=== PATIENT | male | born 1990 | race Caucasian/White ===

== ENCOUNTER 2016-05-06 22:19 | Emergency (ER) | payer MEDICAID ==
[~2016-05-06] VITALS: Ht 190.5 cm; Wt 100.2 kg
[~2016-05-06 22:19] MED LIST: BACTRIM DS 8001 TAB PO; LORTAB 5/500 501 TAB PO; NOMEDS *; VOLTAREN75 MG PO
--- NOTE | 2016-05-06 22:58 | Emergency Room Report ---
History of Present Illness Time Seen by [id number] Presenting Problem in Triage Pt arrived:Walked Presenting Problem:PT C/O LEFT KNEE PAIN. 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 N Clinical Suspician of Infection? N Mental Status: 1 - Regular (Normal Baseline) Sepsis Risk:Low Sepsis Risk Have you (or family members/close friends) recently traveled outside the [place]? N If Yes, where/when: Have you had exposure to infectious disease within the past month? N TB? Other? Specify: Source patient, RN notes reviewed, old records Exam Limitations no limitations Comment lt knee pain over the last 2 weeks - worse last few days with no new injury - originally hurt playing bb Cardiac Chest Pain Chest pain indicative of cardiac No Timing/Duration this evening Severity moderate ALLERGIES Coded Allergies: No Known Allergies (05/06/16) Home Medications Reported Medications No Known Home Medications History Medical History General CAD? No Angina: No PR: No Hypertension? No Hyperlipidemia? No CHF? No DVT? No PE? No COPD? No Asthma? No Anemia? No GERD? No Gastric ulcers? No GI Bleed? No Hernia? No Thyroid Problems? No Hypothyroidism? No CVA? No Seizures? No Diabetes? No Renal Insuffiency? No End Stage Renal Disease? No UTI? No Stones? No BPH? No GB Disease: No Nephritic Syndrome? No Asplenia? No Hepatitis? No Sickle Cell Disease? No Arthritis? No Migraines? No Cataracts? No Glaucoma? No MRSA? No HIV? No TB? No Anxiety? No Depression? No Cancer? No More? No Immunization Hx DT/Tetanus 5-10 YRS Flu NEVER Pneumonia NEVER Surgical Hx Previous Surgery?Y Ear tubes Tonsils Family History Family Hx Diabetes Yes CAD No Hypertension Yes Hyperlipidemia No Cancer Yes TB No Social History Smoking Hx Smoker: Current Every Day Smoker Tobacco: Yes Type Cigarettes Packs/day < 1 Pack Alcohol Alcohol: No Drugs none Review of Systems All Other Systems Reviewed and Negative Constitutional denies fever Eyes denies drainage ENT denies: ear pain, epistaxis, throat pain. Respiratory denies cough, denies shortness of breath, denies wheezing Cardiovascular denies chest pain, denies syncope Gastrointestinal denies abdominal pain, denies diarrhea, denies vomiting Genitourinary denies: dysuria, frequency, hesitancy, hematuria. Musculoskeletal denies back pain, joint pain, denies joint swelling, denies neck pain Skin denies rash Psychiatric/Neurological denies headache, denies seizure Physical Exam Vital Signs Vital Signs Date Time Temp Pulse Resp B/P Pulse O2 O2 Flow FiO2 Ox Delivery Rate 05/06 2226 97.9 114 18 151/78 97 - WBC >12,000 or <4,000 or 10% bands? 2 or more SIRS Criteria Met? B/P:151/78 MAP:102 Creatinine >2.0? UA output<0.5ml/kg/hr for 2 hrs? Platelet count >100,000? Lactate >2.0mmol/1? INR >1.2 or PTT > than 60 sec? Evidence of Organ Dysfunction? Provider documented clinical suspician of infection? N Sepsis Criteria Count: 1 Sepsis Risk: Low Sepsis Risk General Appearance no apparent distress Eye Exam - bilateral eye PERRL, bilateral eye EOMI Ear, Nose, Throat normal ENT inspection Neck supple Respiratory Status No: respiratory distress. Cardiovascular regular rate/rhythm Peripheral Pulses Pulses normal Yes Extremities lt knee w/o reddness /effusion and some medial tenderness with prieto and drawer test ok Strength 4 Upper Ext (L), 4 Upper Ext (R), 4 Lower Ext (L), 4 Lower Ext (R) Neurologic alert, [employer] works II-XII nml as tested, no motor/sensory deficits Reflexes Reflexes normal Yes Mental status normal mood/affect Skin intact Medical Decision Making LABS/Meds/Orders Pt receiving controlled substance in ED? No Results/Orders Orders Procedure Date/time Status KNEE-3 VIEWS-LT 05/06 2231 Active XRAY/CT/US XRAY/CT/US XRAY knee XR interpretation by reviewed by me Xray Results no fracture seen Departure Departure Time of Disposition 2256 Disposition DC Home or Self Care(routine) Clinical Impression Primary Impression: Left knee sprain Qualifiers: Encounter type: initial encounter Involved ligament of knee: unspecified ligament Qualified Code: S83.92XA - Sprain of unspecified site of left knee, initial encounter Condition STABLE Referrals Rodolfo Alejandro MD Patient Instructions DI for Knee Sprain Additional Instructions ice tonight and use meds and see pcp or ortho for follow up Discharge Counseling Counseled pt/family regarding diagnosis, test results, medications/RX, follow up needs Prescriptions Current Visit Scripts Meloxicam (Mobic 15MG) 15 MG PO DAILY #10 TAB ED Critical Care Critical Care No at 2306
--- NOTE | 2016-05-06 22:58 | Emergency Room Report ---
History of Present Illness Time Seen by [id number] Presenting Problem in Triage Pt arrived:Walked Presenting Problem:PT C/O LEFT KNEE PAIN. PT STATES THAT HE WAS PLAYING BASKETBALL A COUPLE WEEKS AGO AND IT STARTED HURTING THEN BUT WENT AWAY AND IS NOW BACK TO HURTING Onset of symptoms date/time:/ or onset unknown for:MEDICAL HX UNKNOWN Treatment Prior to Arrival: [employer] Provided by: Sepsis Risk Assessment: Temp: 97.9 B/P: 151/78 MAP: 102 Pulse: 114 Resp: 18 Recent fever? N Clinical Suspician of Infection? N Mental Status: 1 - Regular (Normal Baseline) Sepsis Risk:Low Sepsis Risk Have you (or family members/close friends) recently traveled outside the [place]? N If Yes, where/when: Have you had exposure to infectious disease within the past month? N TB? Other? Specify: Source patient, RN notes reviewed, old records Exam Limitations no limitations Comment lt knee pain over the last 2 weeks - worse last few days with no new injury - originally hurt playing bb Cardiac Chest Pain Chest pain indicative of cardiac No Timing/Duration this evening Severity moderate ALLERGIES Coded Allergies: No Known Allergies (05/06/16) Home Medications Reported Medications No Known Home Medications History Medical History General CAD? No Angina: No IA: No Hypertension? No Hyperlipidemia? No CHF? No DVT? No PE? No COPD? No Asthma? No Anemia? No GERD? No Gastric ulcers? No GI Bleed? No Hernia? No Thyroid Problems? No Hypothyroidism? No CVA? No Seizures? No Diabetes? No Renal Insuffiency? No End Stage Renal Disease? No UTI? No Stones? No BPH? No GB Disease: No Nephritic Syndrome? No Asplenia? No Hepatitis? No Sickle Cell Disease? No Arthritis? No Migraines? No Cataracts? No Glaucoma? No MRSA? No HIV? No TB? No Anxiety? No Depression? No Cancer? No More? No Immunization Hx DT/Tetanus 5-10 YRS Flu NEVER Pneumonia NEVER Surgical Hx Previous Surgery?Y Ear tubes Tonsils Family History Family Hx Diabetes Yes CAD No Hypertension Yes Hyperlipidemia No Cancer Yes TB No Social History Smoking Hx Smoker: Current Every Day Smoker Tobacco: Yes Type Cigarettes Packs/day < 1 Pack Alcohol Alcohol: No Drugs none Review of Systems All Other Systems Reviewed and Negative Constitutional denies fever Eyes denies drainage ENT denies: ear pain, epistaxis, throat pain. Respiratory denies cough, denies shortness of breath, denies wheezing Cardiovascular denies chest pain, denies syncope Gastrointestinal denies abdominal pain, denies diarrhea, denies vomiting Genitourinary denies: dysuria, frequency, hesitancy, hematuria. Musculoskeletal denies back pain, joint pain, denies joint swelling, denies neck pain Skin denies rash Psychiatric/Neurological denies headache, denies seizure Physical Exam Vital Signs Vital Signs Date Time Temp Pulse Resp B/P Pulse O2 O2 Flow FiO2 Ox Delivery Rate 05/06 2226 97.9 114 18 151/78 97 - WBC >12,000 or <4,000 or 10% bands? 2 or more SIRS Criteria Met? B/P:151/78 MAP:102 Creatinine >2.0? UA output<0.5ml/kg/hr for 2 hrs? Platelet count >100,000? Lactate >2.0mmol/1? INR >1.2 or PTT > than 60 sec? Evidence of Organ Dysfunction? Provider documented clinical suspician of infection? N Sepsis Criteria Count: 1 Sepsis Risk: Low Sepsis Risk General Appearance no apparent distress Eye Exam - bilateral eye PERRL, bilateral eye EOMI Ear, Nose, Throat normal ENT inspection Neck supple Respiratory Status No: respiratory distress. 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 No Results/Orders Orders Procedure Date/time Status KNEE-3 VIEWS-LT 05/06 2231 Active XRAY/CT/US XRAY/CT/US XRAY knee XR interpretation by reviewed by me Xray Results no fracture seen Departure Departure Time of Disposition 2256 Disposition DC Home or Self Care(routine) Clinical Impression Primary Impression: Left knee sprain Qualifiers: Encounter type: initial encounter Involved ligament of knee: unspecified ligament Qualified Code: S83.92XA - Sprain of unspecified site of left knee, initial encounter Condition STABLE Referrals Rodolfo Alejandro MD Patient Instructions DI for Knee Sprain Additional Instructions ice tonight and use meds and see pcp or ortho for follow up Discharge Counseling Counseled pt/family regarding diagnosis, test results, medications/RX, follow up needs Prescriptions Current Visit Scripts Meloxicam (Mobic 15MG) 15 MG PO DAILY #10 TAB ED Critical Care Critical Care No at 2306
[2016-05-06] MEDS ORDERED: MOBIC15 MG PO (23:06)
[2016-05-06 23:21] VITALS: BP 152/89
--- NOTE | 2016-05-07 07:47 | RADIOLOGY REPORT PS360 ---
KNEE-3 VIEWS-LT HISTORY: KNEE PAIN ORDERING PHYSICIAN: Hiral Freeman MD PATIENT AGE: 25 years COMPARISON: None FINDINGS: No fracture or dislocation. No lytic or blastic change. Normal mineralization. No significant arthritic changes evident. No other significant findings IMPRESSION: Negative Knee
== END 2016-05-06 23:22 | disposition home or self-care (01) ==
LOC: ER 22:19
DX: S83.92XA Sprain of unspecified site of left knee, initial encounter (principal); Z72.0 Tobacco use; X50.1XXA Overexertion from prolonged static or awkward postures, initial encounter; Y93.79 Activity, other specified sports and athletics; Y92.009 Unspecified place in unspecified non-institutional (private) residence as the place of occurrence of the external cause

== ENCOUNTER 2017-01-22 22:26 | Emergency (ER) | payer MEDICAID ==
[~2017-01-22] VITALS: Ht 190.5 cm; Wt 100.2 kg
[~2017-01-22 22:26] MED LIST changes: +MOBIC15 MG PO
--- OUTSIDE RECORDS SUMMARY | 2017-01-22 22:50 | External Medical Summary Rpt | CCD ---
Author Author , VISHNU Organization VISHNU Address Unknown Phone Care Team Providers Care Data Integration Architect Name Role Phone BROWN, BROWN Unavailable Unavailable FOX MCELROY, Unavailable Unavailable FOX MCELROY DOUGLAS, Unavailable Unavailable SAM STAFFORD MD, Unavailable Unavailable INDERJIT MARX MD [facility] Un[facility] Un[facility], [facility] KASSIE DAVIS Unavailable Unavailable KHALIF ADRIA FERNANDO, Unavailable Unavailable ADRIA FERNANDO [facility] Un[facility] INC, [facility] MILLER SYDNEE, Unavailable Unavailable MILLER SYDNEE MILLER SYDNEE, Unavailable Unavailable MILLER SYDNEE [facility]available [facility]available [facility], [facility] REBECCA LORENZO, Unavailable Unavailable REBECCA LORENZO [facility] Unavailable Unavailable SERVICES, [facility] ALLEN ANTUNEZ, Unavailable Unavailable ALLEN ANTUNEZ MULBERRY SAMANTHA, Unavailable Unavailable MULBERRY SAMANTHA MULBERRY SAMANTHA, Unavailable Unavailable MULBERRY SAMANTHA MULBERRY, MEEK T, Unavailable Unavailable MULBERRY, MEEK T [facility] Unavailable Unavailable #591, [facility] # Unavailable Unavailable [id number], [facility] # [id number] BRIGITTE GOMEZ, Unavailable Unavailable BRIGITTE GOMEZ Continuity of Care Document - 05-30-2007 through 2016 Problems Code Diagnosis DOS Provider Status [id number] PAIN IN 05-06-2016 [facility] [id number] SPRAIN 05-06-2016 [facility] SITE LT INC KNEE INITIAL ENCNTR Z720 TOBACCO USE 05-06-2016 [facility] INC 844.9 844.9 07-28-2012 [facility] SPRAIN OF [facility] KNEE & LEG [facility] NOS E849.4 E849.4 07-28-2012 [facility] ACCID IN [facility] AREA E927.0 E927.0 07-28-2012 [facility] OVEREXERTIO [facility] N FROM Hospital SUDDEN STRENUOUS MOVEMENT 7821 RASH AND 08-17-2011 MULBERRY OTHER SAMANTHA NONSPECIFIC SKIN ERUPTION 9221 CONTUSION 01-06-2011 [facility] WALL SERVICES 5206 DISTURBANCE 03-03-2010 MILLER S IN TOOTH SYDNEE ERUPTION 7061 OTHER ACNE 02-17-2010 [facility] V202 ROUTINE 01-16-2010 [facility] OR [facility]ATES CHILD HEALTH CHECK 76729 CONTUSION 08-08-2009 [facility] EMERGENCY SERVICES ASSOCIATES E8490 PLACE OF 08-08-2009 [facility] E9179 OTHER 08-08-2009 [facility] STRIKING MEDICAL AGAINST IMAGING W/WO ASSOCIATES SUBSEQUENT FALL 460 ACUTE 01-09-2009 [facility] NASOPHARYNG ASSOCIATES ITIS 32206 ACUT 08-12-2008 [facility] OTITIS INC MEDIA W/O SPONT RUP EARDRUM 97195 SPRAIN AND 08-12-2008 [facility] EMERGENCY UNSPECIFIED SERVICES SITE OF ASSOCIATES WRIST 00213 CONTUSION 06-12-2008 [facility]ICAL [facility] E8494 PLACE OF 06-12-[address] [facility] [address] IMAGING RECREATION ASSOCIATES AND SPORT E9278 OTH 06-12-2008 [facility] OVEREXERT&S MEDICAL TRENUOUS&RE IMAGING PETITIVE ASSOCIATES MVMNTS/LOAD S 6929 CONTACT 03-26-2008 [facility] DERMATITIS& ASSOCIATES OTHER ECZEMA DUE UNSPEC CAUSE 08667 CLOSED 07-19-2007 MCELROY, FRACTURE FOX UNSPEC PHALANX/PHA LANGES HAND 84033 CLOS 07-14-2007 [facility] MID/PROXIMA INC L PHALANX/PHA LANG HAND E8498 OTHER 07-13-[address] [facility] [address] [facility] Allergies, Adverse Reactions, Alerts Type Allergy to substance Adverse Reaction to Substance Substance Reaction Severity NO KNOWN ALLERGIES Unknown Unknown Medications Na ND Rx Da Fi Fi Am Da Di Ph RX Ph St me C No te ll ll ou ys ag ar # ys at rm s nt no ma ic us Or Da si cy ia de te s n re d IB 67 06 07 30 10 00 RI Ac UP 87 -2 -2 .0 00 TE ti RO 70 9- 1- 00 01 ve FE 32 20 20 18 AI N 10 17 17 99 D 80 5 27 PH 0 AR MG MA CY TA BL #3 ET 93 8 SF 60 06 07 51 15 00 RI Ac 25 -2 -2 .0 00 TE ti 50 80 9- 1- 00 01 ve 00 15 20 20 18 AI 00 [address] 28 PH US AR MA CR CY EA M #3 93 8 IB 67 06 07 30 10 00 RI Ac UP 87 -0 -0 .0 00 TE ti RO 70 6- 7- 00 01 ve FE 32 20 20 18 AI N 10 17 17 68 D 80 5 67 PH 0 AR MG MA CY TA BL #3 ET 93 8 IB 67 05 06 30 10 00 RI Ac UP 87 -1 -0 .0 00 TE ti RO 70 1- 2- 00 01 ve FE 32 20 20 18 AI N 10 17 17 35 D 80 5 96 PH 0 AR MG MA CY TA BL #3 ET 93 8 LI 50 05 06 10 10 00 RI Ac DO 38 -1 -0 0. 00 TE ti CA 30 1- 2- 00 01 ve IN 77 20 20 0 18 AI E 50 17 17 35 D 2% 4 97 PH AR MA SC CY OU S #[address] 8 SO 00 06 0 No DI 40 -2 UM 97 1- Lo 98 20 ng CH 30 13 er LO 9 RI Ac DE ti ve 0. 9% SO ANSIMA TI ON Sa 63 06 1 No li 80 -2 ne 70 1- Lo 10 20 ng Fl 07 13 er us 5 h Ac 10 ti ML ve Sy ri ng e Ib 62 06 0 No up 58 -2 ro 40 1- Lo fe 74 20 ng n 60 13 er 40 1 0M Ac G ti Ta ve bl et OX 00 04 0 No YC 40 -2 OD 60 5- Lo ON 51 20 ng E- 26 13 er AC 2 ET Ac AM ti IN ve OP HE N 5- 32 5 OX 00 11 11 0 20 3 WA 22 HE Ac YC 40 -2 -2 .0 L- 19 ND ti OD 60 9 9 00 MA 04 ER ve ON 51 20 20 RT 9 SO E- 20 10 10 N AC 1 PH RO ET AR BE AM MA RT IN CY W OP # HE N 10 5- 05 32 91 5 AM 00 11 11 0 15 5 WA 70 HE Ac OX 78 -2 -2 .0 L- 96 ND ti IC 12 9- 9- 00 MA 28 ER ve IL 61 20 20 RT 7 SO LI 30 10 10 N N 5 PH RO 50 AR BE 0 MA RT MG CY W # CA PS 10 UL 05 E 91 ME 00 11 11 0 21 6 WA 70 HE Ac TH 60 -2 -2 .0 L- 96 ND ti YL 34 9- 9- 00 MA 28 ER ve GA 59 20 20 RT 8 SO ED 31 10 10 N NI 5 PH RO SO AR BE LO MA RT NE CY W 4 # MG 10 05 DO [address] [place] 63 11 11 0 30 30 WA 70 MU Ac NO 30 -1 -1 .0 L- 94 LB ti CY 40 5- 5- 00 MA 52 ER ve CL 69 20 20 RT 9 RY IN 65 10 10 E 0 PH BR 10 AR IA 0 MA N MG CY T # CA PS 10 UL 05 E 91 00 10 10 0 50 25 WA 70 MU Ac 06 -1 -1 .0 L- 90 LB ti 60 4- 5- 00 MA 21 ER ve 49 20 20 RT 8 RY 45 10 10 5 PH BR AR IA MA N CY T # 10 05 91 DI 00 05 05 0 14 7 WA 70 GA Ac CL 78 -0 -0 .0 L- 69 IN ti OF 11 6- 7- 00 MA 72 EY ve EN 78 20 20 RT 9 AC 90 10 10 KY 1 PH CH SO AR AE D MA L EC CY S # 75 10 MG 05 91 TA B 66 10 10 00 12 12 WA 70 MU Ac 99 -0 -2 0. L- 40 LB ti 20 7- 2- 00 MA 38 ER ve 22 20 20 0 RT 6 RY 00 09 09 4 PH BR AR IA MA N CY T #5 91 BE 68 10 10 00 30 10 WA 70 MU Ac NZ 38 -0 -2 .0 L- 40 LB ti ON 20 7- 2- 00 MA 38 ER ve AT 24 20 20 RT 7 RY AT 80 09 09 E 1 PH BR 20 AR IA 0 MA N MG CY T CA #5 PS 91 UL E [place] 00 10 10 00 30 30 WA 70 MU Ac NO 59 -0 -2 .0 L- 40 LB ti CY 15 7- 2- 00 MA 38 ER ve CL 69 20 20 RT 8 RY IN 55 09 09 E 0 PH BR 10 AR IA 0 MA N MG CY T CA #5 PS 91 UL E DEL RIO 53 05 05 00 14 7 WA 70 MA Ac LF 74 -1 -2 .0 L- 20 RT ti AM 60 1- 1- 00 MA 16 IN ve ET 27 20 20 RT 7 J HO 20 09 09 XA 5 PH MA ZO AR NG LE MA AN -T CY MP MD #5 DS 91 PS C TA BL ET DE 51 12 12 00 30 15 WA 69 MU Ac SO 67 -1 -1 .0 L- 99 LB ti XI 21 1- 8- 00 MA 44 ER ve ME 27 20 20 RT 3 RY TA 10 08 08 SO 1 PH BR NE AR IA MA N 0. CY T 05 % #5 CR 91 EA M DI 00 12 12 00 45 32 WA 69 MU Ac FF 29 -1 -1 .0 L- 99 LB ti ER 95 1- 8- 00 MA 44 ER ve IN 91 20 20 RT 4 RY 04 08 08 0. 5 PH BR 1% AR IA MA N GE CY T L #5 91 00 04 04 00 10 2 WA 44 No Ac 40 -1 -2 .0 L- 67 t ti 60 0- 4- 00 MA 48 Av ve 35 20 20 RT 2 ai 70 08 08 la 5 PH bl AR e MA CY #5 91 60 02 04 00 20 6 WA 69 No Ac 25 -2 -0 0. L- 61 t ti 80 5- 7- 00 MA 68 Av ve 41 20 20 0 RT 8 ai 51 08 08 la 6 PH bl AR e MA CY #5 91 HY 60 02 04 00 90 3 WA [address] 43 -2 -0 .0 L- 66 t ti OC 20 9- 7- 00 MA 63 Av ve OD 45 20 20 RT 3 ai ON 51 08 08 la E- 6 PH bl HO AR e MA MA TR CY OP IN #5 E 91 SY RU P Vital Signs 09-23-2012 03:44 Name Value Interpretat Reference Comment ion Range Body 98.4 [degF] Temperature BP 56 mm[Hg] Diastolic BP Systolic 134 mm[Hg] Heart 84 /min Rate/Pulse O2% 98 % Respiratory 18 /min Rate 09-23-2012 01:13 Name Value Interpretat Reference Comment ion Range BP 95 mm[Hg] Diastolic BP Systolic 154 mm[Hg] Heart 87 /min Rate/Pulse O2% 98 % Respiratory 18 /min Rate 07-28-2012 20:16 Name Value Interpretat Reference Comment ion Range Body 98.5 [degF] Temperature BP 74 mm[Hg] Diastolic BP Systolic 146 mm[Hg] Heart 85 /min Rate/Pulse O2% 98 % Respiratory 19 /min Rate 07-28-2012 19:17 Name Value Interpretat Reference Comment ion Range Body 98.2 [degF] Temperature BP 77 mm[Hg] Diastolic BP Systolic 126 mm[Hg] Heart 82 /min Rate/Pulse O2% 100 % Respiratory 18 /min Rate Results Labs Lab Lab Date Result Refere Interp Status Commen Order Detail nces retati t Range on COMPREHENSIVE METABOLIC PANEL (09-23-2012 00:45) Glucose 93 74-106 complet 013 mg/dL ed Bld-mCn 00:45 c BUN 25 7-18 complet Bld-mCn 013 mg/dL ed c 00:45 Creat 2 1.2 0.8-1.3 complet SerPl-m 013 mg/dL ed Cnc 00:45 ESTIMAT 2 140 50-200 complet ED 013 ML/MIN ed CREATIN 00:45 INE CLEARAN CE GFR 78 Greater complet (ESTIMA 013 ML/MIN than ed RADHA) 00:45 60 Sodium 2 137 136-145 complet SerPl-s 013 mmoL/L ed Cnc 00:45 Potassi 3.3 3.5-5.1 complet um 013 mmoL/L ed SerPl-s 00:45 Cnc Chlorid 2 99 98-107 complet e 013 mmoL/L ed SerPl-s 00:45 Cnc CO2 26 21.0-32 complet SerPl-s 013 mmoL/L .0 ed Cnc 00:45 Calcium 9.3 8.5-10. complet 013 mg/dL 1 ed SerPl-m 00:45 Cnc Prot 09-23-2 8.4 6.4-8.2 complet SerPl-m 013 gm/dL ed Cnc 00:45 Albumin 09-23-2 4.7 3.4-5.0 complet 013 gm/dL ed SerPl-m 00:45 Cnc Globuli 09-23-2 3.7 1.3-3.2 complet n 013 gm/dL ed Ser-mCn 00:45 c Albumin 09-23-2 1.3 UNK 1.1-1.8 complet /Glob 013 ed SerPl-m 00:45 Rto Bilirub 06-21-2 0.4 0.2-1.0 complet 013 mg/dL ed SerPl-m 00:45 Cnc AST 09-23-2 14 U/L 15-37 complet SerPl-c 013 ed Cnc 00:45 ALT 09-23-2 35 U/L 30-65 complet SerPl-c 013 ed Cnc 00:45 ALP 09-23-2 155 U/L 50-136 complet SerPl-c 013 ed Cnc 00:45 Amylase SerPl-cCnc (09-23-2012 00:45) Amylase 09-23-2 56 U/L 25-115 complet 013 ed SerPl-c 00:45 Cnc LIPASE (09-23-2012 00:45) LIPASE 09-23-2 70 U/L 73-393 complet 013 ed 00:45 CBC with AUTO DIFF (09-23-2012 00:45) WBC # 06-21-2 14.2 4.5-13. complet Bld 013 K/MM3 0 ed Auto 00:45 RBC # 0621-2 6.02 4.6-6.2 complet Bld 013 M/mm3 ed Auto 00:45 Hgb 21-2 17.0 14.1-18 complet Bld-mCn 013 g/dL .0 ed c 00:45 Hct Fr 09-23-2 49.8 % 42.0-52 complet Bld 013 .0 ed 00:45 MCV RBC 21-2 82.7 fl 82.2-97 complet 013 .8 ed 00:45 MCH RBC 21-2 28.1 pg 27-31.2 complet Qn 013 ed Auto 00:45 MEAN -21-2 34.0 31.8-35 complet CORPUSC 013 g/dl .4 ed ULAR 00:45 HGB CONC RDW RBC 21-2 12.6 % 11.5-17 complet Auto 013 .5 ed 00:45 Platele -21-2 377 142-424 complet t Bld 013 K/mm3 ed Ql 00:45 Manual MEAN -21-2 6.7 fl 7.4-10. complet PLATELE 013 4 ed T 00:45 VOLUME Granulo -21-2 61.2 % 37.0-80 complet cytes 013 .0 ed Fr Bld 00:45 Auto LYMPH % 09-23-2 30.4 % 10-50 complet 013 ed 00:45 Monocyt 06-21-2 6.4 % 1.7-9.3 complet es Fr 013 ed Bld 00:45 Auto Eosinop 06-21-2 1.6 % 0.1-12. complet hil Fr 013 0 ed Bld 00:45 Auto Basophi 06-21-2 0.5 % 0.1-2.0 complet ls Fr 013 ed Bld 00:45 Auto Granulo 06-21-2 8.7 1.3-8.0 complet cytes # 013 K/mm3 ed Bld 00:45 Auto Lymphoc 06-21-2 4.3 0.7-4.5 complet ytes Fr 013 K/mm3 ed Bld 00:45 Auto Monocyt 06-21-2 0.9 0.1-1.0 complet es # 013 K/mm3 ed Bld 00:45 Auto Eosinop 06-21-2 0.2 0.0-0.4 complet hil # 013 K/mm3 ed Bld 00:45 Auto Basophi 06-21-2 0.1 0-0.2 complet ls # 013 K/MM3 ed Bld 00:45 Auto Procedures Procedure DOS Code Location Performer Comment RADIOLOGI 87551 [facility] C 7 MEDICAL EXAMINATI IMAGING ON KNEE 3 ASS VIEWS RADEX 67756 [facility] RIBS UNI 1 [facility] W/POSTERO INC INC ANT CH MINIMUM 3 VIEWS RADEX 61266 [facility] CODY SPINE 1 [facility] THORACIC INC INC 3 VIEWS DEEP D9220 ANGELA MILLER SEDATION/ 0 SYDNEE SYDNEE GENERAL ANESTHESI A-1ST 30 MINUTES THER 89786 ANGELA MILLER PROPH/DX 0 SYDNEE SYDNEE NJX IV PUSH SINGLE/1S T SBST/DRUG ORTHOPANT 05266 ANGELA MILLER OGRAM 0 SYDNEE SYDNEE SCREENING 39222 FAMILY MULBERRY TEST 0 CARE SAMANTHA CEMENT HANDLER ACUITY S QUANTITAT GIANCARLO BILAT RADEX 83817 [facility] FOREARM 2 0 [facility] VIEWS INC INC RADEX 23002 [facility] WRIST 9 [facility] COMPLETE INC INC MINIMUM 3 VIEWS RADEX 91902 BONNIE ANTUNEZ, HAND 9 MEDICAL ALLEN P MINIMUM 3 IMAGING VIEWS ASSOCIATE S APPLICATI 99979 [facility] GOMEZ, ON SHORT 8 [facility] SPLINT PROF SERV FOREARM-H AND STATIC RADEX 73703 BONNIE ANTUNEZ, FINGR 8 MEDICAL ALLEN P MINIMUM 2 IMAGING VIEWS ASSOCIATE S APPLICATI 9354 [facility] CODY ON OF 8 [facility] HOSP SPLINT INC INC BLOOD 01314 FAMILY MULBERRY, COUNT 8 CARE MEEK T COMPLETE ASSOCIATE AUTO&AUTO S DIFRNTL WBC Encounters Encounter Start End Date Code Location Performer Type Date HOSPITAL [facility] - 7 7 [facility] OUTPATIEN INC T EMERGENCY 24482 [facility] 7 7 [facility] T VISIT LOW/MODER SEVERITY Emergency VANDANA Fernando MD (ER) 3 00:37 3 03:44 [facility] Emergency VANDANA MARX MD (ER) 3 18:41 3 20:16 [facility] OFFICE 64897 MULBERRY MULBERRY OUTPATIEN 2 2 SAMANTHA SAMANTHA T VISIT 15 MINUTES HOSPITAL [facility] - 1 1 [facility] OUTPATIEN [facility] EMERGENCY 49433 [facility] 1 1 [facility] T VISIT LOW/MODER SEVERITY EMERGENCY 32817 MARIELA FERNANOD 1 1 EMERG[facility]Y [facility] T VISIT HIGH/URGE NT SEVERITY OFFICE 78611 FAMILY MULBERRY OUTPATIEN 0 0 CARE SAMANTHA T VISIT ASSOCIATE 15 S MINUTES OFFICE 21602 ANGELA MILLER OUTPATIEN 0 0 SYDNEE SYDNEE T NEW 10 MINUTES PERIODIC 06301 FAMILY MULBERRY PREVENTIV 0 0 CARE SAMANTHA E MED EST ASSOCIATE PATIENT S 12-17YRS [facility] ESCOBAR - 0 0 [facility] OUTPATIEN INC T EMERGENCY 43309 [facility] 0 0 [facility] DEPARTMEN INC T VISIT LOW/MODER SEVERITY EMERGENCY 24309 MARIELA FERNANDO, 0 0 EMERGENCY [facility] SERVICES T VISIT MODERATE ASSOCIATE SEVERITY S OFFICE 32470 TOMMIE GARCIAPATIEN 9 9 CARE MEEK T T VISIT ASSOCIATE 25 S MINUTES EMERGENCY 49475 [facility] V[facility]/M [facility] H[facility] - 9 9 [facility] OUTPATIEN INC T EMERGENCY 93038 MARIELA LORENZO, 9 9 EMERGENCY [facility] SERVICES T VISIT MODERATE ASSOCIATE SEVERITY S HOSPITAL [facility] - 9 9 [facility] OUTPATIEN INC T EMERGENCY 46684 [facility] 9 9 [facility] T VISIT LOW/MODER SEVERITY OFFICE 49451 FAMILY WILLIS OUTPATIEN 8 8 CARE MEEK T T VISIT ASSOCIATE 15 S MINUTES OFFICE 60020 FAMILY WILLIS OUTPATIEN 8 8 CARE MEEK T T VISIT ASSOCIATE 15 S MINUTES OFFICE 48642 LILIBETH MCELROY OUTPATIEN 8 8 FOX FOX T NEW 45 MINUTES EMERGENCY 98094 [facility] 8 8 [facility] T VISIT LOW/MODER SEVERITY HOSPITAL [facility] - 8 8 [facility] OUTPATIEN INC T EMERGENCY 91273 [facility] GOMEZ, 8 8 [facility] T VISIT PROF SERV LOW/MODER SEVERITY OFFICE 37469 FAMILY TEAGAN WILLISEN 8 8 CARE MEEK T T VISIT ASSOCIATE 15 S MINUTES
--- OUTSIDE RECORDS SUMMARY | 2017-01-22 22:50 | External Medical Summary Rpt | CCD ---
Author Author , VISHNU Organization VISHNU Address Unknown Phone Care Team Providers Care Dental Laboratory Assistant Name Role Phone BROWN, BROWN Unavailable Unavailable FOX MCELROY, Unavailable Unavailable FOX MCELROY DOUGLAS, Unavailable Unavailable SAM STAFFORD MD, Unavailable Unavailable INDERJIT MARX MD [facility] Unavailable Unavailable ASSOC[facility]ATES, [facility] KASSIE DAVIS Unavailable Unavailable KHALIF ADRIA FERNANDO, Unavailable Unavailable ADRIA FERNANDO [facility] Unavailable Unavailable INC, [facility] MILLER SYDNEE, Unavailable Unavailable MILLER SYDNEE MILLER SYDNEE, Unavailable Unavailable MILLER SYDNEE [facility] Unavailable Unavailable [facility], [facility] REBECCA LORENZO, Unavailable Unavailable REBECCA LORENZO [facility] Unavailable Unavailable SERVICES, [facility] ALLEN ANTUNEZ, Unavailable Unavailable ALLEN ANTUNEZ MULBERRY SAMANTHA, Unavailable Unavailable MULBERRY SAMANTHA MULBERRY SAMANTHA, Unavailable Unavailable MULBERRY SAMANTHA MULBERRY, MEEK T, Unavailable Unavailable MULBERRY, MEEK T [facility] Unavailable Unavailable #591, [facility] # Unavailable Unavailable [id number], [facility] # [id number] BRIGITTE GOMEZ, Unavailable Unavailable BRIGITTE GOMEZ Continuity of Care Document - 05-30-2007 through 2016 Problems Code Diagnosis DOS Provider Status D04150 PAIN IN 05-06-2016 [facility] J9035SL SPRAIN 05-06-2016 [facility] SITE LT INC KNEE INITIAL ENCNTR Z720 TOBACCO USE 05-06-2016 [facility] INC 844.9 844.9 07-28-2012 [facility] SPRAIN OF [facility] KNEE & LEG [facility] NOS E849.4 E849.4 07-28-2012 Escobar ACCID IN [facility] AREA E927.0 E927.0 07-28-2012 Esc[facility] OVEREXERTIO [facility] N FROM Hospital SUDDEN STRENUOUS MOVEMENT 7821 RASH AND 08-17-2011 MULBERRY OTHER SAMANTHA NONSPECIFIC SKIN ERUPTION 9221 CONTUSION 01-06-2011 [facility] EMERGENCY WALL SERVICES 5206 DISTURBANCE 03-03-2010 MILLER S IN TOOTH SYDNEE ERUPTION 7061 OTHER ACNE 02-17-2010 [facility] V202 ROUTINE 01-16-2010 [facility] OR ASSOCIATES CHILD HEALTH CHECK 60310 CONTUSION 08-08-2009 [facility] EMERGENCY SERVICES ASSOCIATES E8490 PLACE OF 08-08-2009 [place] [facility] E9179 OTHER 08-08-2009 [place] STRIKING MEDICAL AGAINST IMAGING W/WO ASSOCIATES SUBSEQUENT FALL 460 ACUTE 01-09-2009 [facility] NASOPHARYNG ASSOCIATES ITIS 55642 ACUT 08-12-2008 [facility] OTITIS INC MEDIA W/O SPONT RUP EARDRUM 79740 SPRAIN AND 08-12-2008 [facility] OF EMERGENCY UNSPECIFIED SERVICES SITE OF ASSOCIATES WRIST 66078 CONTUSION 06-12-2008 [place] [facility]ATES E8494 PLACE OF 06-12-[address] [place] [address] IMAGING RECREATION ASSOCIATES AND SPORT E9278 OTH 06-12-2008 [place] OVEREXERT&S MEDICAL TRENUOUS&RE IMAGING PETITIVE ASSOCIATES MVMNTS/LOAD S 6929 CONTACT 03-26-2008 [facility] DERMATITIS& ASSOCIATES OTHER ECZEMA DUE UNSPEC CAUSE 86467 CLOSED 07-19-2007 MCELROY, FRACTURE FOX UNSPEC PHALANX/PHA LANGES HAND 84871 CLOS 07-14-2007 [facility] FRACTURE [facility] MID/PROXIMA INC L PHALANX/PHA LANG HAND E8498 OTHER 07-13-[address] [place] [address] OF IMAGING OCCURRENCE ASSOCIATES [...] Ac DE ti ve 0. 9% SO NASIMA TI ON Sa 63 06 1 No [...] 9- 9- 00 MA 28 ER ve KS 59 20 20 RT 8 SO ED 31 10 10 N NI 5 PH RO SO AR BE LO MA RT NE CY W 4 # MG 10 05 DO 91 [address] PK IA 63 11 11 0 30 30 WA [...] 20 RT 9 AC 90 10 10 IA 1 PH CH SO AR AE D [...] T CA #5 PS 91 UL E IA 00 10 10 00 30 30 WA [...] Procedure DOS Code Location Performer Comment RADIOLOGI 30694 [place] [facility] C 7 MEDICAL EXAMINATI IMAGING ON KNEE 3 ASS VIEWS RADEX 22876 [facility] RIBS UNI 1 [facility] W/POSTERO INC INC ANT CH MINIMUM 3 VIEWS RADEX 31325 [facility] CODY SPINE 1 [facility] THORACIC INC INC 3 VIEWS DEEP D9220 ANGELA MILLER SEDATION/ 0 SYDNEE SYDNEE GENERAL ANESTHESI A-1ST 30 MINUTES THER 23823 ANGELA MILLER PROPH/DX 0 SYDNEE SYDNEE NJX IV PUSH SINGLE/1S T SBST/DRUG ORTHOPANT 44018 ANGELA MILLER OGRAM 0 SYDNEE SYDNEE SCREENING 84268 FAMILY MULBERRY TEST 0 CARE SAMANTHA FOOD PREPARATION WORKER ACUITY S QUANTITAT GIANCARLO BILAT RADEX 31534 [facility] FOREARM 2 0 [facility] VIEWS INC INC RADEX 67892 [facility] WRIST 9 [facility] COMPLETE INC INC MINIMUM 3 VIEWS RADEX 99668 BONNIE ANTUNEZ, HAND 9 MEDICAL ALLEN P MINIMUM 3 IMAGING VIEWS ASSOCIATE S APPLICATI 04290 [facility] GOMEZ, ON SHORT [address] [facility] SPLINT PROF SERV FOREARM-H AND STATIC RADEX 13373 BONNIE ANTUNEZ, FINGR 8 MEDICAL ALLEN P MINIMUM 2 IMAGING VIEWS ASSOCIATE S APPLICATI 9354 [facility] CODY ON OF 8 [facility] SPLINT INC INC BLOOD 82997 FAMILY MULBERRY, COUNT 8 CARE MEEK T COMPLETE ASSOCIATE AUTO&AUTO S DIFRNTL WBC Encounters Encounter Start End Date Code Location Performer Type Date HOSPITAL [facility] - 7 7 [facility] OUTPATIEN INC T EMERGENCY 59683 [facility] 7 [facility]OW/MODER SEVERITY Emergency VANDANA Fernando MD (ER) 3 00:37 3 03:44 [facility] Emergency VANDANA MARX MD (ER) 3 18:41 3 20:16 [facility] OFFICE 83125 MULBERRY MULBERRY OUTPATIEN 2 2 SAMANTHA SAMANTHA T VISIT 15 MINUTES HOSPITAL [facility] - 1 1 [facility] OUTPATIEN [facility] EMERGENCY 23421 [facility] 1 1 [facility] T VISIT LOW/MODER SEVERITY EMERGENCY 97281 MARIELA FERNANDO 1 1 [facility] T VISIT HIGH/URGE NT SEVERITY OFFICE 40527 FAMILY MULBERRY OUTPATIEN 0 0 CARE SAMANTHA T VISIT ASSOCIATE 15 S MINUTES OFFICE 04640 ANGELA MILLER OUTPATIEN 0 0 SYDNEE SYDNEE T NEW 10 MINUTES PERIODIC 21835 FAMILY MULBERRY PREVENTIV 0 0 CARE SAMANTHA E MED EST ASSOCIATE PATIENT S 12-17YRS [facility] ESCOBAR - 0 0 [facility] OUTPATIEN INC T EMERGENCY 25700 [facility] 0 0 [facility] DEPARTMEN INC T VISIT LOW/MODER SEVERITY EMERGENCY 84938 MARIELA FERNANDO, 0 0 EMERGENCY [facility] SERVICES T VISIT MODERATE ASSOCIATE SEVERITY S OFFICE 95491 TOMMIE GARCIAPATIEN 9 9 CARE MEEK T T VISIT ASSOCIATE 25 S MINUTES EMERGENCY 39649 [facility] 9 9 [facility] INC T VISIT LIMITED/M [facility] ESC[facility]AR - 9 9 [facility] OUTPATIEN INC T EMERGENCY 98576 MARIELA LORENZO, 9 9 EMERGENCY [facility] SERVICES T VISIT MODERATE ASSOCIATE SEVERITY S HOSPITAL ESCOBAR - 9 9 [facility] OUTPATIEN INC T EMERGENCY 95423 ESCOBAR 9 9 [facility] INC T VISIT LOW/MODER SEVERITY OFFICE [id number] FAMILY WILLIS OUTPATIEN 8 8 CARE MEEK T T VISIT ASSOCIATE 15 S MINUTES OFFICE 95261 FAMILY WILLIS OUTPATIEN 8 8 CARE MEEK T T VISIT ASSOCIATE 15 S MINUTES OFFICE 13785 LILIBETH MCELROY OUTPATIEN 8 8 FOX FOX T NEW 45 MINUTES EMERGENCY 54895 ESCOBAR 8 8 [facility] T VISIT LOW/MODER SEVERITY HOSPITAL ESCOBAR - 8 8 [facility] OUTPATIEN INC T EMERGENCY 56840 ESCOBAR GOMEZ, 8 8 [facility] T VISIT PROF SERV LOW/MODER SEVERITY OFFICE 23097 FAMILY TEAGAN WILLISEN 8 8 CARE MEEK T T VISIT ASSOCIATE 15 S MINUTES
--- OUTSIDE RECORDS SUMMARY | 2017-01-22 22:52 | External Medical Summary Rpt | CCD ---
Author Author , VISHNU FLORESANA LAURA Address Unknown Phone [email or web address] Team Providers Care Mail Order Clerk Name Role Phone FOX MCELROY, Unavailable Unavailable FOX MCELROY DOUGLAS, Unavailable Unavailable [facility] Unavailable Unavailable ASSOCI[facility], [facility] KASSIE CUADRA, KASSIE Unavailable Unavailable KHALIF ADRIA FERNANDO, Unavailable Unavailable [facility] FERNA[facility] Unavailable Unavailable INC, [facility] MILLER SYDNEE, Unavailable Unavailable MILLER SYDNEE MILLER SYDNEE, Unavailable Unavailable MILLER SYDNEE [facility] Unavailable Unavailable [facility], [facility] REBECCA LORENZO, Unavailable Unavailable REBECCA LORENZO [facility] Unavailable Unavailable SERVICES, [facility] ALLEN ANTUNEZ, Unavailable Unavailable ALLEN ANTUNEZ MULBERRY SAMANTHA, Unavailable Unavailable MULBERRY SAMANTHA MULBERRY SAMANTHA, Unavailable Unavailable MULBERRY SAMANTHA MULBERRY, MEEK T, Unavailable Unavailable MULBERRY, MEEK T [facility] Unavailable Unavailable #[id number], [facility] # Unavailable Unavailable [id number], [facility] # [id number] BRIGITTE GOMEZ, Unavailable Unavailable BRIGITTE GOMEZ Purpose Continuity of Care Document - 05-30-2007 through 2016 Problems Code Diagnosis DOS Provider Status [id number] PAIN IN 05-06-2016 [facility] [id number] SPRAIN 05-06-2016 [facility] SITE LT INC KNEE INITIAL ENCNTR Z720 TOBACCO USE 05-06-2016 [facility] INC 7821 RASH AND 08-17-2011 MULBERRY OTHER SAMANTHA NONSPECIFIC SKIN ERUPTION 9221 CONTUSION 01-06-2011 [facility] EMERGENCY WALL SERVICES 5206 DISTURBANCE 03-03-2010 ANGELA S IN TOOTH SYDNEE ERUPTION 7061 OTHER ACNE 02-17-2010 [facility] V202 ROUTINE 01-16-2010 [facility] CHILD HEALTH CHECK 06289 CONTUSION 08-08-2009 [facility] SERVICES ASSOCIATES E8490 PLACE OF 08-08-2009 [place] [facility] E9179 OTHER 08-08-2009 [place] [facility] MEDICAL AGAINST IMAGING W/WO ASSOCIATES SUBSEQUENT FALL 460 ACUTE 01-09-2009 [facility] NASOPHARYNG ASSOCIATES ITIS 41897 ACUT 08-12-2008 [facility] OTITIS INC MEDIA W/O SPONT RUP EARDRUM 42363 SPRAIN AND 08-12-2008 MAR[facility] STRAIN OF EMERGENCY UNSPECIFIED SERVICES SITE OF ASSOCIATES WRIST 02595 CONTUSION 06-12-2008 [place] OF HAND [facility]ICAL IM[facility]ING [facility] E8494 PLACE OF 06-12-[address] [place] [address] IMAGING RECREATION ASSOCIATES AND SPORT E9278 OTH 06-12-2008 [place] OVEREXERT&S MEDICAL TRENUOUS&RE IMAGING PETITIVE ASSOCIATES MVMNTS/LOAD S 6929 CONTACT 03-26-2008 [facility] DERMATITIS& ASSOCIATES OTHER ECZEMA DUE UNSPEC CAUSE 44570 CLOSED 07-19-2007 LILIBETH, FRACTURE FOX UNSPEC PHALANX/PHA LANGES HAND 04050 CLOS 07-14-2007 [facility] MID/PROXIMA INC L PHALANX/PHA LANG HAND E8498 OTHER 07-13-[address] [place] [address] [facility]CC[facility] Medications Na ND Rx Da Fi Fi [...] OU S #[address] 8 OX 00 11 11 0 20 3 WA 22 HE Ac YC 40 -2 -2 .0 L- 19 ND ti OD 60 9- 9- 00 MA 04 ER ve ON 51 20 20 RT 9 SO E- 20 10 10 N AC 1 PH RO ET AR BE AM MA RT IN CY W OP # HE N 10 5- 05 32 91 5 AM 00 11 11 0 15 5 WA 70 HE Ac OX 78 -2 -2 .0 L- 96 ND ti IC 12 9 9 00 MA 28 ER ve IL 61 20 20 RT 7 SO LI 30 10 10 N N 5 PH RO 50 AR BE 0 MA RT MG CY W # CA PS 10 UL 05 E 91 ME 00 11 11 0 21 6 70 HE Ac TH 60 -2 -2 .0 L- 96 ND ti YL 34 9- 9- 00 MA 28 ER ve [place] 59 20 20 RT 8 SO ED 31 10 10 N NI 5 PH RO SO AR BE LO MA RT NE CY W 4 # MG 10 05 DO 91 SE PK MO 63 11 11 0 30 30 WA [...] 20 RT 9 AC 90 10 10 MO 1 PH CH SO AR AE D [...] IA MA N CY T #5 91 MO 00 10 10 00 30 30 WA 70 MU Ac NO 59 -0 -2 .0 L- 40 LB ti CY 15 7- 2- 00 MA 38 ER ve CL 69 20 20 RT 8 RY IN 55 09 09 E 0 PH BR 10 AR IA 0 MA N MG CY T CA #5 PS 91 UL E BE 68 10 10 00 30 10 [...] IN #5 E 91 SY RU P 60 02 04 00 20 6 WA 69 No Ac 25 -2 -0 0. L- 61 t ti 80 5- 7- 00 MA 68 Av ve 41 20 20 0 RT 8 ai 51 08 08 la 6 PH bl AR e MA CY #5 91 Procedures Procedure DOS Code Location Performer Comment RADIOLOGI 00656 [facility] C 7 [facility] EXAMINATI INC INC ON KNEE 3 VIEWS RADEX 51344 [facility] RIBS UNI 1 [facility] W/POSTERO INC INC ANT CH MINIMUM 3 VIEWS RADEX 36161 [facility] SPINE 1 [facility] THORACIC INC INC 3 VIEWS THER 19745 ANGELA MILLER PROPH/DX 0 SYDNEE SYDNEE NJX IV PUSH SINGLE/1S T SBST/DRUG DEEP D9220 ANGELA MILLER SEDATION/ 0 SYDNEE SYDNEE GENERAL ANESTHESI A-1ST 30 MINUTES ORTHOPANT 72006 ANGELA MILLER OGRAM 0 SYDNEE SYDNEE SCREENING 81838 FAMILY ALBA TEST 0 CARE SAMANTHA INTERNAL MEDICINE NURSE PRACTITIONER ACUITY S QUANTITAT GIANCARLO BILAT RADEX 82851 [place] NYDIA, FOREARM 2 0 MEDICAL SAM VIEWS IMAGING ASSOCIATE S RADEX 08502 [facility] WRIST 9 [facility] COMPLETE INC INC MINIMUM 3 VIEWS RADEX 48896 [place], HAND 9 MEDICAL ALLEN P MINIMUM 3 IMAGING VIEWS ASSOCIATE S APPLICATI 60565 WHITNEY HERNÁNDEZ SHORT 8 [facility] SPLINT PROF SERV FOREARM-H AND STATIC RADEX 74419 [place], FINGR 8 MEDICAL ALLEN P MINIMUM 2 IMAGING VIEWS ASSOCIATE S APPLICATI 9354 [facility] ON OF 8 [facility] SPLINT INC INC BLOOD 46365 FAMILY ALBA, COUNT 8 CARE MEEK T COMPLETE ASSOCIATE AUTO&AUTO S DIFRNTL WBC Encounters Encounter Start End Date Code Location Performer Type Date HOSPITAL [facility] [place] 7 7 [facility] OUTPATIEN INC T EMERGENCY 71758 [facility] 7 7 [facility] DEPARTMEN INC T VISIT LOW/MODER SEVERITY OFFICE 79004 MULBERRY MULBERRY OUTPATIEN 2 2 SAMANTHA SAMANTHA T VISIT 15 MINUTES EMERGENCY 70045 [facility] 1 1 [facility] DEPARTMEN INC T VISIT LOW/MODER SEVERITY EMERGENCY 78196 MARIELA FERNANDO 1 1 EMERGENCY [facility] SERVICES T VISIT HIGH/URGE NT SEVERITY HOSPITAL [facility] - 1 1 [facility] OUTPATIEN INC T OFFICE 19305 FAMILY MULBERRY OUTPATIEN 0 0 CARE SAMANTHA T VISIT ASSOCIATE 15 S MINUTES OFFICE 41071 ANGELA MILLER OUTPATIEN 0 0 SYDNEE SYDNEE T NEW 10 MINUTES PERIODIC 42183 FAMILY MULBERRY PREVENTIV 0 0 CARE SAMANTHA E MED EST ASSOCIATE PATIENT S 12-17YRS EMERGENCY 62341 [facility] 0 0 [facility] INC T VISIT LOW/MODER SEVERITY EMERGENCY 14738 MARIELA FERNANDO, 0 0 EMERGENCY [facility] SERVICES T VISIT MODERATE ASSOCIATE SEVERITY S HOSPITAL [facility] - 0 0 [facility] OUTPATIEN INC T OFFICE 94708 FAMILY MULBERRY, OUTPATIEN 9 9 CARE MEEK T T VISIT ASSOCIATE 25 S MINUTES EMERGENCY 52643 MARIELA LORENZO 9 9 EMERGENCY [facility] SERVICES T VISIT MODERATE ASSOCIATE SEVERITY S EMERGENCY 62537 [facility] 9 9 [facility] T VISIT LIMITED/M INOR PROB HOSPITAL [facility] - 9 9 [facility] OUTPATIEN INC T HOSPITAL [facility] - 9 9 [facility] OUTPATIEN INC T EMERGENCY 51637 [facility] 9 9 [facility] DEPARTMEN INC T VISIT LOW/MODER SEVERITY OFFICE 19098 FAMILY MULBERRY, OUTPATIEN 8 8 CARE MEEK T T VISIT ASSOCIATE 15 S MINUTES OFFICE 69226 LINDSEY GARCIA 8 8 PATRICIA [place] T VISIT ASSOCIATE 15 S MINUTES OFFICE 20202 LILIBETH MCELROY OUTPATIEN 8 8 FOX BRAXTON T NEW 45 MINUTES EMERGENCY 65218 [facility] 8 8 [facility] T VISIT LOW/MODER SEVERITY HOSPITAL [facility] Garrett 8 [facility] 92994 [facility] GOMEZ, 8 8 [facility] T VISIT PROF DONALDSON LOW/MODER SEVERITY OFFICE 98418 LINDSEY GARCIA 8 8 PATRICIA [place] VISIT ASSOCIATE 15 S MINUTES
--- OUTSIDE RECORDS SUMMARY | 2017-01-22 22:52 | External Medical Summary Rpt | CCD ---
Author Author , VISHNU MARES Address Unknown Phone [email or web address] Immunization Name Date Rout CVX Reac Dose Comm Prov Is Faci e tion ent ider Refu lity Give sed n [place] - 2 999 Hist H149 No H149 o-OP 04-23 oric V 97 al Info rmat ion - Sour ce Unsp ecif ied MMR - 3 999 Hist H149 No H149 04-23 oric 97 al Info rmat ion - Sour ce Unsp ecif ied DTaP - 107 999 Hist H149 No H149 , UF 04-23 oric 97 al Info rmat ion - Sour ce Unsp ecif ied
--- OUTSIDE RECORDS SUMMARY | 2017-01-22 22:52 | External Medical Summary Rpt ---
Author Author VISHNU Ruelas, [employer]ISHNU [employer] Organization [employer] Address Unknown Phone Unavailable
--- OUTSIDE RECORDS SUMMARY | 2017-01-22 22:52 | External Medical Summary Rpt | CCD ---
Author Author , VISHNU FLORESANA LAURA Address Unknown Phone [email or web address] Care Team Providers Care Juvenile Justice Officer Name Role Phone FOX MCELROY, Unavailable Unavailable FOX MCELROY DOUGLAS, Unavailable Unavailable [facility] Unavailable Unavailable ASSOCIATES, [facility] KASSIE CUADRA, KASSIE Unavailable Unavailable KHALIF ADRI[facility] FERNANDO, Unavailable Unavailable [facility] Unavailable Unavailable INC, [facility] MILLER SYDNEE, Unavailable Unavailable MILLER SYDNEE MILLER SYDNEE, Unavailable Unavailable MILLER SYDNEE [facility] Unavailable Unavailable IM[facility]ING [facility], [facility] REBECCA LORENZO, Unavailable Unavailable REBECCA LORENZO [facility] Unavailable Unavailable SERVICES, [facility] ALLEN ANTUNEZ, Unavailable Unavailable ALLEN ANTUNEZ MULBERRY SAMANTHA, Unavailable Unavailable MULBERRY SAMANTHA MULBERRY SAMANTHA, Unavailable Unavailable MULBERRY SAMANTHA MULBERRY, MEEK T, Unavailable Unavailable MULBERRY, MEEK T [facility] Unavailable Unavailable #591, [facility] # Unavailable Unavailable [id number], [facility] # [id number] BRIGITTE GOMEZ, Unavailable Unavailable BRIGITTE GOMEZ Purpose Continuity of Care Document - 05-30-2007 through 2016 Problems Code Diagnosis DOS Provider Status [id number] PAIN IN 05-06-2016 [facility] [id number] SPRAIN 05-06-2016 [facility] SITE LT INC KNEE INITIAL ENCNTR Z720 TOBACCO USE 05-06-2016 [facility] INC 7821 RASH AND 08-17-2011 MULBERRY OTHER SAMANTHA NONSPECIFIC SKIN ERUPTION 9221 CONTUSION 01-06-2011 [facility] EMERGENCY WALL SERVICES 5206 DISTURBANCE 03-03-2010 ANGELA S IN TOOTH SYDNEE ERUPTION 7061 OTHER ACNE 02-17-2010 [facility] V202 ROUTINE 01-16-2010 [facility] CHILD HEALTH CHECK 24178 CONTUSION 08-08-2009 [facility] EMERGENCY SERVICES ASSOCIATES E8490 PLACE OF 08-08-2009 [place] OCCURRENCE, [facility] IM[facility]ING ASSOC[facility]ATES E9179 OTHER 08-08-2009 [place] STRIKING MEDICAL AGAINST IMAGING W/WO ASSOCIATES SUBSEQUENT FALL 460 ACUTE 01-09-2009 [facility] ITIS 51075 ACUT 08-12-2008 [facility] OTITIS INC MEDIA W/O SPONT RUP EARDRUM 89775 SPRAIN AND 08-12-2008 [facility] STRAIN OF EMERGENCY UNSPECIFIED SERVICES SITE OF ASSOCIATES WRIST 79920 CONTUSION 06-12-2008 [place] OF HAND MEDICAL IMAGING ASS[facility]ATES E8494 PLACE OF 06-12-[address] [place] [address] IMAGING RECREATION ASSOCIATES AND SPORT E9278 OTH 06-12-2008 [facility] OVEREXERT&S MEDICAL TRENUOUS&RE IMAGING PETITIVE ASSOCIATES MVMNTS/LOAD S 6929 CONTACT 03-26-2008 [facility] DERMATITIS& [facility]OCIATES OTHER ECZEMA DUE UNSPEC CAUSE 06688 CLOSED 07-19-2007 LILIBETH, FRACTURE FOX UNSPEC PHALANX/PHA LANGES HAND 71691 CLOS 07-14-2007 [facility] MID/PROXIMA INC L PHALANX/PHA LANG HAND E8498 OTHER 07-13-[address] [place] [address] OF IMAGING OCCURRENCE ASSOCIATES [...] 9- 9- 00 MA 28 ER ve ID 59 20 20 RT 8 SO ED 31 10 10 N NI 5 PH RO SO AR BE LO MA RT NE CY W 4 # MG 10 05 DO 91 SE PK MN 63 11 11 0 30 30 WA [...] 20 RT 9 AC 90 10 10 MN 1 PH CH SO AR AE D [...] IA MA N CY T #5 91 MN 00 10 10 00 30 30 WA [...] Procedure DOS Code Location Performer Comment RADIOLOGI 76902 [facility] C 7 [facility] EXAMINATI INC INC ON KNEE 3 VIEWS RADEX 51931 [facility] RIBS UNI 1 [facility] W/POSTERO INC INC ANT CH MINIMUM 3 VIEWS RADEX 63574 [facility] SPINE 1 [facility] THORACIC INC INC 3 VIEWS THER 66995 ANGELA MILLER PROPH/DX 0 SYDNEE SYDNEE NJX IV PUSH SINGLE/1S T SBST/DRUG DEEP D9220 ANGELA MILLER SEDATION/ 0 SYDNEE SYDNEE GENERAL ANESTHESI A-1ST 30 MINUTES ORTHOPANT 67136 ANGELA MILLER OGRAM 0 SYDNEE SYDNEE SCREENING 67880 FAMILY ALBA TEST 0 CARE SAMANTHA PERSONAL CARE AID ACUITY S QUANTITAT GIANCARLO BILAT RADEX 41385 [place] NYDIA, FOREARM 2 0 MEDICAL SAM VIEWS IMAGING ASSOCIATE S RADEX 47467 [facility] WRIST 9 [facility] COMPLETE INC INC MINIMUM 3 VIEWS RADEX 22458 [place], HAND 9 MEDICAL ALLEN P MINIMUM 3 IMAGING VIEWS ASSOCIATE S APPLICATI 56962 WHITNEY HERNÁNDEZ SHORT 8 [facility] SPLINT PROF SERV FOREARM-H AND STATIC RADEX 94426 [place], FINGR 8 MEDICAL ALLEN P MINIMUM 2 IMAGING VIEWS ASSOCIATE S APPLICATI 9354 [facility] C[facility] ON OF 8 [facility] SPLINT INC INC BLOOD 05630 FAMILY ALBA, COUNT 8 CARE MEEK T COMPLETE ASSOCIATE AUTO&AUTO S DIFRNTL WBC Encounters Encounter Start End Date Code Location Performer Type Date HOSPITAL [facility] [place] 7 7 [facility] OUTPATIEN INC T EMERGENCY 47488 [facility] 7 7 [facility] DEPARTMEN INC T VISIT LOW/MODER SEVERITY OFFICE 40744 MULBERRY MULBERRY OUTPATIEN 2 2 SAMANTHA SAMANTHA T VISIT 15 MINUTES EMERGENCY 32935 [facility] 1 1 [facility] DEPARTMEN INC T VISIT LOW/MODER SEVERITY EMERGENCY 84762 MARIELA FERNANDO 1 1 EMERGENCY [facility] SERVICES T VISIT HIGH/URGE NT SEVERITY HOSPITAL [facility] - 1 1 [facility] OUTPATIEN INC T OFFICE 41587 FAMILY MULBERRY OUTPATIEN 0 0 CARE SAMANTHA T VISIT ASSOCIATE 15 S MINUTES OFFICE 25087 ANGELA MILLER OUTPATIEN 0 0 SYDNEE SYDNEE T NEW 10 MINUTES PERIODIC 15424 FAMILY MULBERRY PREVENTIV 0 0 CARE SAMANTHA E MED EST ASSOCIATE PATIENT S 12-17YRS EMERGENCY 89054 [facility] [address] [facility] INC T VISIT LOW/MODER SEVERITY EMERGENCY 50131 MARIELA FERNANDO, 0 0 EMERGENCY [facility] SERVICES T VISIT MODERATE ASSOCIATE SEVERITY S HOSPITAL [facility] - 0 0 [facility] OUTPATIEN INC T OFFICE 18494 FAMILY MULBERRY, OUTPATIEN 9 9 CARE MEEK T T VISIT ASSOCIATE 25 S MINUTES EMERGENCY 25051 MARIELA LORENZO [address] [facility] SERVICES T VISIT MODERATE ASSOCIATE SEVERITY S EMERGENCY 75443 [facility] 9 9 [facility] V[facility]/M INOR PROB HOS[facility] - 9 9 [facility] OUTPATIEN INC T HOSPITAL [facility] - 9 9 [facility] OUTPATIEN INC T EMERGENCY 57976 [facility] 9 9 [facility] DEPARTMEN INC T VISIT LOW/MODER SEVERITY OFFICE 10789 FAMILY MULBERRY, OUTPATIEN 8 8 CARE MEEK T T VISIT ASSOCIATE 15 S MINUTES OFFICE 87761 LINDSEY GARCIA 8 8 PATRICIA [place] T VISIT ASSOCIATE 15 S MINUTES OFFICE 25977 LILIBETH MCELROY OUTPATIEN 8 8 FOX [place] T NEW 45 MINUTES EMERGENCY 10364 [facility] 8 8 [facility] T VISIT LOW/MODER SEVERITY HOSPITAL [facility] Garrett 8 [facility] T EMERGENCY 95961 [facility] GOMEZ, 8 8 [facility] T VISIT PROF DONALDSON LOW/MODER SEVERITY OFFICE 61772 LINDSEY GARCIA 8 8 PATRICIA [place] VISIT ASSOCIATE 15 S MINUTES
--- OUTSIDE RECORDS SUMMARY | 2017-01-22 22:52 | External Medical Summary Rpt | CCD ---
Author Author , VISHNU MARES Address Unknown Phone Immunization Name Date Rout CVX Reac Dose [...]
--- NOTE | 2017-01-23 00:44 | Emergency Room Report ---
History of Present Illness Time Seen by 2199 Presenting Problem in Triage Pt arrived:Wheelchair Presenting Problem:PLAYING BASKETBALL, JUMPED CAME DOWN ON SOMEONE ELSES FOOT. 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 N Clinical Suspician of Infection? N Mental Status: 1 - Regular (Normal Baseline) Sepsis Risk:Low Sepsis Risk Have you (or family members/close friends) recently traveled outside the [place]? N If Yes, where/when: Have you had exposure to infectious disease within the past month? N TB? Other? Specify: Source patient, RN notes reviewed, family, old records Exam Limitations no limitations Comment pt with acute rt ankle injury tonight with sts Cardiac Chest Pain Chest pain indicative of cardiac No Timing/Duration this evening Severity moderate ALLERGIES Coded Allergies: No Known Allergies (05/06/16) Home Medications Reported Medications No Known Home Medications History Medical History General CAD? No Angina: No FL: No Hypertension? No Hyperlipidemia? No CHF? No DVT? No PE? No COPD? No Asthma? No Anemia? No GERD? No Gastric ulcers? No GI Bleed? No Hernia? No Thyroid Problems? No Hypothyroidism? No CVA? No Seizures? No Diabetes? No Renal Insuffiency? No End Stage Renal Disease? No UTI? No Stones? No BPH? No GB Disease: No Nephritic Syndrome? No Asplenia? No Hepatitis? No Sickle Cell Disease? No Arthritis? No Migraines? No Cataracts? No Glaucoma? No MRSA? No HIV? No TB? No Anxiety? No Depression? No Cancer? No More? No Immunization Hx DT/Tetanus 5-10 YRS Flu NEVER Pneumonia NEVER Surgical Hx Previous Surgery?Y Ear tubes Tonsils Family History Family Hx Diabetes Yes CAD No Hypertension Yes Hyperlipidemia No Cancer Yes TB No Social History Smoking Hx Smoker: Current Every Day Smoker Tobacco: Yes Type Cigarettes Packs/day < 1 Pack Alcohol Alcohol: No Drugs none Review of Systems All Other Systems Reviewed and Negative Constitutional denies fever Eyes denies drainage ENT denies: ear pain, epistaxis, throat pain. Respiratory denies cough, denies shortness of breath, denies wheezing Cardiovascular denies chest pain, denies edema, denies syncope Gastrointestinal denies abdominal pain, denies diarrhea, denies vomiting Genitourinary denies: dysuria, frequency, hesitancy. Musculoskeletal see HPI, denies back pain, joint pain, joint swelling, denies neck pain Skin denies rash Psychiatric/Neurological denies headache, denies seizure Physical Exam Vital Signs Vital Signs Date Time Temp Pulse Resp B/P Pulse O2 O2 Flow FiO2 Ox Delivery Rate 01/23 0006 76 18 155/81 96 01/22 2326 86 20 146/80 97 01/22 2229 98.9 97 18 142/88 97 - WBC >12,000 or <4,000 or 10% bands? 2 or more SIRS Criteria Met? B/P:155/81 MAP:106 Creatinine >2.0? UA output<0.5ml/kg/hr for 2 hrs? Platelet count >100,000? Lactate >2.0mmol/1? INR >1.2 or PTT > than 60 sec? Evidence of Organ Dysfunction? Provider documented clinical suspician of infection? N Sepsis Criteria Count: 1 Sepsis Risk: Low Sepsis Risk General Appearance no apparent distress Eye Exam - bilateral eye PERRL, bilateral eye EOMI Ear, Nose, Throat normal ENT inspection Neck supple Respiratory Status No: respiratory distress. 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 No Results/Orders Current Medication Orders Sig/Yolanda Start time Last Medication Dose Route Stop Time Status Admin Acetaminophen 650 MG ONCE ONE 01/22 2245 DC 01/22 PO 01/22 Acetaminophen 0 .STK-MED ONE 01/22 2239 DC PO Acetaminophen 0 .STK-MED ONE 01/22 2237 DC PO Orders Procedure Date/time Status FOOT-RT-3 VIEWS 01/22 2315 Active ANKLE-RT-3 VIEWS 01/228 Active XRAY/CT/US XRAY/CT/US XRAY ankle, foot XR interpretation by reviewed by me Xray Results no fracture seen Departure Departure Time of Disposition 32 Disposition DC Home or Self Care(routine) Clinical Impression Primary Impression: Right ankle sprain Qualifiers: Encounter type: initial encounter Involved ligament of ankle: unspecified ligament Qualified Code: S93.401A - Sprain of unspecified ligament of right ankle, initial encounter Condition STABLE Referrals RUTH THOMPSON DPM Patient Instructions DI for Ankle Sprain Additional Instructions ice and elevate with nsaif and see podiatry for follow up Discharge Counseling Counseled pt/family regarding diagnosis, test results, medications/RX, follow up needs Prescriptions Current Visit Scripts No Known Home Medications ED Critical Care Critical Care No at 0043
[2017-01-23 00:55] VITALS: BP 155/81
--- NOTE | 2017-01-23 09:58 | RADIOLOGY REPORT PS360 ---
FOOT-RT-3 VIEWS, ANKLE-RT-3 VIEWS HISTORY: TWISTING INJURY Patient Age: 26 years: Male Ordering Physician: Hiral Freeman MD TECHNIQUE: Right foot: 3 views right foot Right ankle 3 views COMPARISON :No relevant previous studies RIGHT FOOT: 3 views. No fracture nor dislocation at right foot. Joint spaces well-maintained. Hypertrophic Talar beaking noting focal area spurring seen extending dorsal aspect of distal talus but noted. There is swelling in soft tissues just superior & proximal to this. Right foot otherwise unremarkable ====== RIGHT ANKLE 3 VIEWS.: Soft tissue swelling overlying lateral malleolus. There are tiny osseous densities seen seen immediate inferior to the tip of the lateral malleolus. These are suspect for avulsion flake fracture off tip of lateral malleolus. The ankle mortise is intact. No widening at the medial joint. The dome of talus intact. Dorsal Talar spur /beaking again noted as discussed on foot study. Medial malleolus and posterior malleolus intact. IMPRESSION: 1. Suggestion of very tiny flake avulsion fracture fragment off tip of lateral malleolus. (Basically reflecting severe sprain) 2. Associated soft tissue swelling overlying the lateral malleolus extending anteriorly 3. Right ankle joint otherwise intact withNormal relationships 4.... Right foot intact. No fracture at right foot. Please fax report to ER
== END 2017-01-23 00:56 | disposition home or self-care (01) ==
LOC: ER 22:26
DX: S93.401A Sprain of unspecified ligament of right ankle, initial encounter (principal); W50.0XXA Accidental hit or strike by another person, initial encounter; Y93.67 Activity, basketball; Y92.310 Basketball court as the place of occurrence of the external cause; F17.210 Nicotine dependence, cigarettes, uncomplicated